=== PATIENT | female | born 1935 | race Caucasian/White ===

== ENCOUNTER 2017-04-25 07:30 | Inpatient (IN) ==
[~2017-04-25 07:30] MED LIST: ACETAMINOPHEN 500 MG TABLET PO ONE; FAMOTIDINE PB 20 MG/50 ML BAG IV ONE; LIDOCAINE 1% (10mg/ml) 2mL INJ PF SDV ID ONE; METOCLOPRAMIDE 10mg/2ml INJECTION IVP ONE; NOZIN NASAL SWAB NAS ONE; ONDANSETRON 4 MG/2 ML INJECTION IVP ONE
[2017-04-25] MEDS ORDERED: EPINEPHrine PF 0.25 MG, BUPIVACAINE 0.25% PF 30 ML, KETOROLAC INJ 60 MG in NS 30 ML OPSITE ONE (08:00)
[2017-04-25 08:43] VITALS: BMI 28.3
[2017-04-25] MEDS: LR 1,000 ML IV SCH ×2 (09:15→12:15)
[2017-04-25] MEDS ORDERED: CEFAZOLIN 1 G INJECTION IVP ONE (10:00)
[2017-04-25] MEDS ORDERED: VANCOMYCIN 1,000 MG INJECTION ONE (10:18)
--- NOTE | 2017-04-25 10:34 | Anesthesia Preoperative Report ---
Anesthesia Preoperative Record - Date and Time Date: 04/25/17 Preoperative Diagnosis: Lt TKA M17.12 Proposed Procedure: Left Total Knee Replacement NPO Since Date: 04/25/17 NPO Since Time: 00:00 Allergies/Adverse Reactions: Allergies Allergy/AdvReac Type Severity Reaction Status Date / Time morphine Allergy Severe HIVES Verified 04/25/17 08:51 lisinopril Allergy Intermediate WEAKNESS Verified 04/25/17 08:51 NSAIDS (Non-Steroidal AdvReac Intermediate Hx of Verified 04/25/17 08:51 Anti-Inflamma bleeding ulcer - Vital Signs Vital Signs: Temperature 97.5 F 04/25/17 08:42 Pulse Rate 56 L 04/25/17 09:45 Respiratory Rate 16 04/25/17 09:45 Blood Pressure 200/82 H 04/25/17 09:45 Pulse Oximetry 97 04/25/17 08:42 Height and Weight: Height 5 ft 7.5 in Weight 83.3 kg Body Mass Index 28.3 - Medications Inpatient Medications: Current Medications Lactated Ringer's (Lactated Ringers) 1,000 mls @ 50 mls/hr IV .Q20H ALEJA Last Admin: 04/25/17 09:15 Dose: 50 mls/hr Sodium Chloride (Iv Flush) 10 - 80 ml IV PRN PRN PRN Reason: Flushing Tranexamic Acid (Cyklokapron) 1,000 mg TOP INTRAOP ONE Stop: 04/25/17 10:42 Home Medications: Home Medications Medication Instructions Recorded Confirmed Type Fluticasone/Salmeterol 250/50 1 puff INH HS #0 08/24/11 04/25/17 History [Advair 250-50 Diskus] Clopidogrel Bisulfate [Clopidogrel] 75 mg PO DAILY #0 tab 05/28/14 04/24/17 History hydroCHLOROthiazide 25 mg PO WB #0 tab 05/28/14 04/25/17 History [Hydrochlorothiazide] Docusate Sodium [Colace] 200 mg PO DAILY #0 cap 12/21/14 04/25/17 History Levothyroxine Sodium 75 mcg PO HS #0 tab 12/21/14 04/25/17 History Multivitamin [Multi-Day Vitamins] 1 tab PO DAILY #0 12/21/14 04/25/17 History [place]-3 Fatty Acids/Fish Oil [Fish 2 cap PO DAILY #0 12/21/14 04/25/17 History Oil Concentrate Softgel] Acetaminophen [Acetaminophen Extra 1,000 mg PO Q6H PRN 03/11/17 04/25/17 History Strength] Glucosamine/D3/Boswellia Magali 1 tab PO DAILY 03/11/17 04/25/17 History [Osteo Bi-Flex Tablet] Sertraline [Zoloft] 50 mg PO DAILY 03/11/17 04/25/17 History Tramadol [Ultram] 100 mg PO DAILY PRN 03/11/17 04/25/17 History dilTIAZem HCl [Cartia Xt] 180 mg PO HS 03/11/17 04/25/17 History Is Patient on Beta Wiliam?: No - Medical History Respiratory: Reports: Asthma DENIES: Sleep Apnea Cardiovascular: Reports: Abnormal EKG (AFib), Arrhythmia (A-Fib), Hypertension Gastrointestional: Reports: Gastroesophageal Reflux Disease (Controlled), Gastrointestinal Bleeding, Ulcer (GAVE disease) Neuro/Musculoskeletal: Reports: HX.MS.OSAR, Back Problems, Depression, Headaches Renal/Endocrine: Reports: Diabetes Mellitus Type 2 (diet controlled), Thyroid Disease (hypo) Other History: Reports: Blood Transfusions (no reactions) - Surgical History HEENT Surgeries: Reports: Eye Surgery (OD cat ext with IOL imp), Tonsillectomy Cardiac Surgeries/Treatments: Reports: Cardiac Catheterization, Other ( Cardioversion x2) GI Surgery/Treatments: Reports: EGD Surgery/Treatment: REPORT: Other (cystocele repair) Musculoskeletal Surgery/Tx: Reports: Knee Arthroscopy (left), Total Knee Replacement (Rt TKA) Reproductive Surgery/Treatment: Reports: Hysterectomy (Vaginal), Laparoscopy ( salpingo-oophorectomy), Oophorectomy, Salpingectomy Anesthesia Reactions: None Hx Family Anesthesia Reaction: No History of Motion Sickness: No - Social History Smoking Status: Never smoker Substance Use Type: does not use Alcohol Intake Frequency: does not drink - Pertinent Findings Laboratory: CBC and BMP 04/25/17 08:53 BMP 04/25/17 08:53 Sodium 142 Potassium 3.8 Chloride 107 Carbon Dioxide 26 BUN 12.0 Creatinine 0.6 L Glucose 185 H Calcium 10.3 H EKG: Sinus Rhythm - Physical Exam Respiratory Exam: Present: lungs clear, bilateral breath sounds equal Cardiovascular Exam: Present: regular rate and rhythm, no murmur - Airway Assessment Mallampati Score: II TMD: 3 Fingerbreadths Neck Extension: fair Overall Assessment: no airway concerns - ASA ASA Score: 2 - Plan Anesthesia: Neuroaxial Regional/Trunk Block: Spinal - Discussion Discussion: Discussed risks/options/alternatives of anesthesia and questions answered. Patient consents. Nursing pain assessment noted. Present for Discussion: family member Attestation Statement: Prior to the delivery of any anesthetic medication, I examined the patient, developed the plan, obtained the patient's consent and discussed the risk and benefits of the procedure with the patient/guardian. - Additional Information Seen by Anesthesia: Yes
[2017-04-25] MEDS ORDERED: SALINE FLUSH 10ml SYRINGE IV PRN (10:41)
[2017-04-25] MEDS ORDERED: TRANEXAMIC ACID 1,000mg/10ml INJECTION TOP ONE (10:41)
[2017-04-25] MEDS ORDERED: VANCOMYCIN 1,000 MG INJECTION IAR ONE (11:36)
[2017-04-25] MEDS ORDERED: PROPOFOL 500 MG/50 ML VIAL IV ONE (11:41)
[2017-04-25] MEDS ORDERED: EPHEDRINE 50mg/ml INJECTION ONE (11:55)
[2017-04-25] MEDS ORDERED: FentaNYL 100 MCG/2 ML INJECTION ONE (12:09)
--- NOTE | 2017-04-25 12:26 | Operative Note ---
- Procedure Preoperative Diagnosis: Left knee primary degenerative joint disease Postoperative Diagnosis: Same as preoperative diagnosis. Surgeon: Addie Flor MD Paradi Tender: Jose Barrera Complications: None. Anesthesia: Spinal with TIVA and LMA Estimated Blood Loss: See Anesthesia Record. Fluids: Please see Anesthesia Record. Description of Procedure: Mrs. Mata and her left knee were identified and marked in the preoperative holding area. She was brought back to the operating suite after a saphenous nerve block was placed in the preoperative holding area. Spinal anesthetic was administered and she was placed supine on the operating table. The left lower extremity was prepped and draped in my normal sterile fashion. Timeout was performed. The IVDesk robot was used during the surgery. 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 A standard anterior midline incision followed by medial parapatellar arthrotomy was performed. Anterior fat pad and meniscus were removed. The patella was resurfaced to a size 29. Tibial and femoral arrays were placed both within the original incision. Checkpoints were then placed both in the femur and the tibia. The bone was then registered with the IVDesk robot. Osteophytes were removed and gaps were captured both 90 and 0 with correction. We manipulated components to achieve a 19 mm gap in extension and 18 mm gap in flexion. The IVDesk robotic arm was then used to assist with the bone cuts. Posterior osteophytes and remaining meniscus were removed. Trial components were placed. We used a 4 femur and a 4 tibia with a 9 mm spacer. She tracked well and was well balanced throughout range of motion. The leg was exsanguinated and the tourniquet inflated to 250 mmHg. The bone was prepared for cementing and components were cemented into place and allowed to cure in extension. The tourniquet was let down and hemostasis obtained with electrocautery. The knee was ranged one more time to ensure good stability, balance and patellar tracking. 1 g of vancomycin powder was then placed into the knee joint. The capsulotomy was then closed with #1 Vicryl. I then left my administrative assistant coordinator to close the subcutaneous tissue with 2-0 Vicryl. Running 4-0 Monocryl will be used in the subcuticular layer. Dermabond will be used on the skin followed by sterile dressing. During the procedure and anesthesia please the patient did convert to a defibrillation which was right controlled. After drapes are removed patient will be taken to recovery room under the care of anesthesia. An EKG will be obtained in the recovery room and cardiac consult we made if necessary.
[2017-04-25] MEDS ORDERED: PROPOFOL 1,000 MG/100 ML VIAL IV ONE (12:31)
[2017-04-25] MEDS ORDERED: ESMOLOL 100 MG/10 ML INJECTION ONE (12:31)
[2017-04-25] MEDS ORDERED: LIDOCAINE 2% (100mg/5mL) PF 5ml vl ONE (12:31)
[2017-04-25] MEDS ORDERED: PHENYLEPHRINE INJ 10 MG/ML VIAL IV ONE (12:31)
--- NOTE | 2017-04-25 13:46 | Anesthesia Procedure Note ---
Peripheral Nerve Blockade - Procedure Physician: Wyatt Flor MD Date: 04/25/17 Surgical Procedure: Left Total Knee Replacement Discussion: Discussed risks/options/alternatives of anesthesia and questions answered. Patient consents. Nursing pain assessment noted. Block Start: 13:25 Block Stop: 13:28 Blocked Employed: Adductor Canal Indication: Post-Operative Pain Approach: Left Side Confirmed Position: Supine Patient: Consent, Risks/Benefits Discussed, Informed, Post Block Act. Discussed IV Sedation: No Sedation: Awake Initial Vital Signs: Temperature 97.5 F 04/25/17 08:42 Temperature Source Oral 04/25/17 08:42 Pulse Rate 65 04/25/17 08:42 Respiratory Rate 15 04/25/17 08:42 Blood Pressure 227/105 H 04/25/17 08:42 Blood Pressure Mean 145 04/25/17 08:42 Blood Pressure Position Sitting 04/25/17 08:42 Pulse Oximetry 97 04/25/17 08:42 Oxygen Delivery Method 04/25/17 08:42 Post Vital Signs: Temperature 97.4 F 04/25/17 12:55 Pulse Rate 93 04/25/17 12:55 Respiratory Rate 14 04/25/17 12:55 Blood Pressure 99/58 04/25/17 12:55 Pulse Oximetry 94 04/25/17 12:55 Initial Pain Pain Score: 5 Prep: Duraprep Ultrasound Used?: Yes - Injectate Ropivacaine (%): 0.5 Ropivacaine (mL): 20 Was Epi 1:200,000 Used?: No Injection: Injection made incrementally with constant monitoring and aspiration every ml
[2017-04-25] MEDS ORDERED: HYDROMORPHONE 2 MG/ML INJECTION IVP PRN (13:53)
--- NOTE | 2017-04-25 14:02 | Cardiology Consult Note ---
<Leslie Rodriguez - Last Filed: 04/26/17 11:36> History of Present Illness Consult date: 04/25/17 Requesting physician: Wyatt Flor Consult reason: atrial fibrillation Chief complaint: left knee replacement History of present illness: Marva is a 81 year old female patient of Dr. Price and Dr. Flor who underwent left total knee replacement today. She has a known history of atrial fibrillation and takes Cardizem for rate control, has had DCCV x2 in the past for rhythm control, but states she often feels her heart rate out of regular rhythm. She had a heart cath in 2015 which was free of significant lesions and her EF was 65% at that time. She currently is not on chronic anticoagulation because she has history of a bleeding ulcer. She is on Plavix 75mg daily as she has a history of TIAs x2. She reports she has diabetes which is controlled with weight loss and diet. She formerly took glipizide but had frequent hypoglycemia and her last A1C is reportedly 6.5. She reports having irritable bowel syndrome and a history of cystocele repair with urinary incontinence. She is examined in the recovery room and denies recent illness, fever chills, sore throat, cough, chest pain, dyspnea, N/V/D or dysuria. Review of Systems - Constitutional Constitutional: Absent: chills, fatigue, fever(s) - EENMT Eyes: Absent: change in vision Balance: Absent: vertigo Mouth/Throat: Absent: sore throat, scratchy throat - Cardiovascular Cardiovascular: Absent: chest pain, palpitations, syncope, dyspnea on exertion Vascular: Absent: pedal edema - Respiratory Respiratory: Absent: cough, dyspnea, dyspnea on exertion - Gastrointestinal Gastrointestinal: Present: as per HPI. Absent: diarrhea, nausea, vomiting - Genitourinary Genitourinary: Present: as per HPI, urinary incontinence. Absent: dysuria - Musculoskeletal Musculoskeletal: Present: arthralgias (left knee) - Integumentary/Breasts Integumentary: Absent: rash - Neurological Neurological: Absent: dizziness - Psychiatric Psychiatric: Present: depression [facility] Patient Stated Medical History Migraine Yes Transient Ischemic Attacks ( Yes: x2, no deficit TIA) Cataracts Yes: OS Cardiac Arrhythmia Yes: A-Fib Hypertension Yes Asthma Yes Sleep Apnea No Diabetes Mellitus Type 2 Yes: diet controlled Gastroesophageal Reflux Yes: Controlled Disease Gastrointestinal Bleeding Yes Ulcer Yes: GAVE disease Hx Incontinence Yes Anemia Yes Other Hematologic Yes: bruises easily from clopidogrel Osteoarthritis Yes Blood Transfusions Yes: no reactions Depression Yes Post Menopausal Yes Clinic Medical History (Last Reviewed 04/08/17 @ 07:06 by Wyatt Flor MD) Overweight (BMI 25.0-29.9) (Acute Medical) Primary osteoarthritis of left knee (Acute Medical) Depression (Acute Medical) Asthma (Acute Medical) A-fib (Acute Medical) GAVE (gastric antral vascular ectasia) (Acute Medical) HTN (hypertension) (Chronic Medical) Stomach ulcer (Chronic Medical) Osteoarthritis (Chronic Medical) Osteoarthritis of knee (Inactive Medical) Surgical History: [id number]; L meniscus arthroscopy; hysterectomy; cystocele repair, cataract removal in left eye, tonsillectomy Family History: Family History (Last Reviewed 04/08/17 @ 07:06 by Wyatt Flor MD) Father [place] Mother Heart failure Sister Diabetes - Social History Smoking status: Never smoker Substance use type: does not use Alcohol intake frequency: does not drink Housing: house Household members: none Current occupational status: retired Current residence: Apartment/Private Home Medications Home Medications Medication Instructions Recorded Confirmed Type Fluticasone/Salmeterol 250/50 1 puff INH HS #0 08/24/11 04/25/17 History [Advair 250-50 Diskus] hydroCHLOROthiazide 25 mg PO WB #0 tab 05/28/14 04/25/17 History [Hydrochlorothiazide] Docusate Sodium [Colace] 200 mg PO DAILY #0 cap 12/21/14 04/25/17 History Levothyroxine Sodium 75 mcg PO HS #0 tab 12/21/14 04/25/17 History Multivitamin [Multi-Day Vitamins] 1 tab PO DAILY #0 12/21/14 04/25/17 History [place]-3 Fatty Acids/Fish Oil [Fish 2 cap PO DAILY #0 12/21/14 04/25/17 History Oil Concentrate Softgel] Acetaminophen [Acetaminophen Extra 1,000 mg PO Q6H PRN 03/11/17 04/25/17 History Strength] Glucosamine/D3/Boswellia Magali 1 tab PO DAILY 03/11/17 04/25/17 History [Osteo Bi-Flex Tablet] Sertraline [Zoloft] 50 mg PO DAILY 03/11/17 04/25/17 History Tramadol [Ultram] 100 mg PO DAILY PRN 03/11/17 04/25/17 History dilTIAZem HCl [Cartia Xt] 180 mg PO HS 03/11/17 04/25/17 History Allergies Allergy/AdvReac Type Severity Reaction Status Date / Time morphine Allergy Severe HIVES Verified 04/25/17 08:51 lisinopril Allergy Intermediate WEAKNESS Verified 04/25/17 08:51 NSAIDS (Non-Steroidal AdvReac Intermediate Hx of Verified 04/25/17 08:51 Anti-Inflamma bleeding ulcer Exam Vital signs: Temperature 97.4 F 04/25/17 12:55 Pulse Rate 80 04/25/17 13:45 Respiratory Rate 20 04/25/17 13:45 Blood Pressure 156/87 H 04/25/17 13:45 Pulse Oximetry 97 04/25/17 13:45 - Constitutional no acute distress, well nourished, cooperative - Routine HEENT Exam Head: Present: normocephalic ENT: Present: mucous membranes moist - Routine Neck Exam Absent: JVD, carotid bruit - Routine Chest/Breast/Axilla Exam Chest wall: Absent: tenderness - Routine Respiratory Exam Present: CTA bilaterally, diminished air movement (bases). Absent: rales, wheezes - Routine Cardiovascular Exam Present: irregular rhythm. Absent: JVD - Routine Abdominal Exam Present: soft, normoactive bowel sounds - Routine Extremities Exam Present: no edema - Routine Skin Exam Present: intact, dry, warm - Routine Neurological Exam Present: alert, oriented X3 - Routine Psychiatric Exam Present: normal affect, normal thought process Results 04/26/17 04:24 04/26/17 04:24 Comprehensive Metabolic Panel 04/25/17 Range/Units 08:53 Sodium 142 (134-144) MEQ/L Potassium 3.8 (3.6-5) MEQ/L Chloride 107 (98-107) MEQ/L Carbon Dioxide 26 (22-30) MEQ/L BUN 12.0 (7-17) MG/DL Creatinine 0.6 L (0.7-1.2) MG/DL Glucose 185 H (65-110) MG/DL Calcium 10.3 H (8.4-10.2) MG/DL Intake and Output 04/24/17 04/25/17 04/25/17 22:59 06:59 14:59 Intake Total 1050 / 1050 Balance 1050 / 1050 Intake: IV 1050 / 1050 Famotidine Pb 20 mg In 50 50 / 50 ml @ 100 mls/hr IV PREOP ONE Rx#:[id number] Lr 1,000 ml @ 50 mls/hr 1000 / 1000 IV .Q20H ALEJA Rx#: [id number] Other: Weight 183 lb 10.321 oz Patient Weight 04/26/17 06:59 Weight 183 lb 10.321 oz Laboratory Results - last 24 hr 04/25/17 04/25/17 08:53 13:05 Turbidity < 20 Sodium 142 Potassium 3.8 Chloride 107 Carbon Dioxide 26 Anion Gap 9 BUN 12.0 Creatinine 0.6 L GFR Calculation 96 BUN/Creatinine Ratio 20 Glucose 185 H Glucometer 166 Calculated Osmolality 278 Calcium 10.3 H Icterus Index < 2 Specimen Hemolysis < 15 Laboratory Results - last 24 hr 04/25/17 04/25/17 04/25/17 08:53 08:53 13:05 Turbidity < 20 Sodium 142 Potassium 3.8 Chloride 107 Carbon Dioxide 26 Anion Gap 9 BUN 12.0 Creatinine 0.6 L GFR Calculation 96 BUN/Creatinine Ratio 20 Glucose 185 H Glucometer 166 Calculated Osmolality 278 Calcium 10.3 H Magnesium 2.1 Icterus Index < 2 TSH 4.94 H Specimen Hemolysis < 15 - Imaging and Cardiology Echo: report reviewed EKG results: image reviewed Imaging & Cardiology Narrative: Date of Exam: 04/25/17 Type of Exam(s): US echo doppler complete DATE OF PROCEDURE April 25, [address] Wyatt Flor This is a two-dimensional echo with spectral Doppler, color-flow and M-mode. It was obtained in a patient with atrial fibrillation. Left atrial dimension is increased. Left ventricle end-diastolic dimension is normal. Left ventricle wall thickness is normal. LV systolic function is normal with ejection fraction of about 55%. Right atrium is normal. Right ventricle is normal. Aortic root dimension is normal. Mitral valve annulus is calcified. Mitral valve leaflets are normal. Aortic valve was not visualized well. However, it appears to be somewhat calcified. Doppler studies indicate no stenosis or insufficiency. Tricuspid valve shows trace of tricuspid regurgitation with normal estimated pulmonary artery systolic pressure of 22. Pulmonary valve shows no pulmonary insufficiency. There is no pericardial effusion. IMPRESSION 1. Normal LV systolic function with ejection fraction of about 55%. 2. Left atrial dilation. 3. Mitral annulus calcification. 4. Aortic sclerosis. 5. Trace of tricuspid regurgitation with normal estimated pulmonary artery systolic pressure of 22. EKG interpretations - EKG EKG shows: atrial fibrillation Assessment and Plan - Assessment and Plan (1) Status post total knee replacement Current visit: Yes Status: Acute per ortho (2) A-fib Current visit: No Status: Chronic Chronic with rate control - Give home Cardizem as ordered - Check TSH and Mag - Obtain echo to evaluate EF, valvular disease, and wall motion abnormalities. - Therapeutic Lovenox 1mg/kg SQ BID, observe for signs of hemorrhage - Start Pradaxa 150mg BID when okay with Ortho (3) HTN (hypertension) Current visit: No Status: Chronic (4) Asthma Current visit: No Status: Chronic (5) History of bleeding ulcers Current visit: Yes Status: Acute at least 2 years ago -will anticoagulate immediately post-operatively with therapeutic Lovenox per ortho -Later may try Pradaxa as it has reversal agent if has a hemorrhage - Assessment and Plan Chronic with rate control - Give home Cardizem as ordered - Check TSH and Mag - Obtain echo to evaluate EF, valvular disease, and wall motion abnormalities. - Lovenox 1mg/kg SQ BID, observe for signs of hemorrhage - Start Pradaxa 150mg BID when okay with Ortho Thank you for allowing us to participate in the care of this patient, we will follow along with you. Hospital Course Summary Disclaimer: The visit summary below is not to be considered part of the above Progress Note. <Hector Lunsford - Last Filed: 04/26/17 14:54> [facility] Patient Stated Medical History Migraine Yes Transient Ischemic Attacks ( Yes: x2, no deficit TIA) Cataracts Yes: OS Cardiac Arrhythmia Yes: A-Fib Hypertension Yes Asthma Yes Sleep Apnea No Diabetes Mellitus Type 2 Yes: diet controlled Gastroesophageal Reflux Yes: Controlled Disease Gastrointestinal Bleeding Yes Ulcer Yes: GAVE disease Hx Incontinence Yes Anemia Yes Other Hematologic Yes: bruises easily from clopidogrel Osteoarthritis Yes Blood Transfusions Yes: no reactions Depression Yes Post Menopausal Yes Clinic Medical History (Last Reviewed 04/08/17 @ 07:06 by Wyatt Flor MD) History of bleeding ulcers (Acute Medical) Overweight (BMI 25.0-29.9) (Acute Medical) Primary osteoarthritis of left knee (Acute Medical) Depression (Acute Medical) Asthma (Chronic Medical) A-fib (Chronic Medical) GAVE (gastric antral vascular ectasia) (Acute Medical) HTN (hypertension) (Chronic Medical) Stomach ulcer (Chronic Medical) Osteoarthritis (Chronic Medical) Osteoarthritis of knee (Inactive Medical) Family History: Family History (Last Reviewed 04/08/17 @ 07:06 by Wyatt Flor MD) Mother Heart failure Exam Vital signs: Temperature 96.5 F L 04/26/17 11:58 Pulse Rate 90 04/26/17 11:58 Respiratory Rate 16 04/26/17 11:58 Blood Pressure 135/57 04/26/17 11:58 Pulse Oximetry 96 04/26/17 11:58 Results 04/26/17 04:24 04/26/17 04:24 CBC 04/26/17 Range/Units 04:24 Hgb 13.3 (12-16) GM/DL Hct 41.1 (36-46) % Comprehensive Metabolic Panel 04/26/17 Range/Units 04:24 Sodium 142 (134-144) MEQ/L Potassium 4.0 (3.6-5) MEQ/L Chloride 107 (98-107) MEQ/L Carbon Dioxide 28 (22-30) MEQ/L BUN 15.0 (7-17) MG/DL Creatinine 0.8 D (0.7-1.2) MG/DL Glucose 156 H (65-110) MG/DL Calcium 9.3 D (8.4-10.2) MG/DL Intake and Output 04/25/17 04/26/17 04/26/17 22:59 06:59 14:59 Intake Total 348 / 348 1252.000 / 1252.000 783.667 / 783.667 Output Total 575 / 575 650 / 650 Balance 348 / 348 677.000 / 677.000 133.667 / 133.667 Intake: IV 348 / 348 852.000 / 852.000 298.667 / 298.667 Cefazolin 2 g In Ns 100 100 / 100 100 / 100 ml @ 200 mls/hr IV Q8H ALEJA Rx#:[id number] Ns 1,000 ml @ 80 mls/hr 248 / 248 752.000 / 752.000 298.667 / 298.667 IV .[id number] ALEJA Rx#: [id number] Oral 400 / 400 485 / 485 Output: Urine 575 / 575 650 / 650 Other: Urine Appearance Clear Clear Urine Color Dark Yellow Yellow Urine Odor Normal # Voids 1 1 Assessment and Plan - Attestation Attestation Narrative: 04/26/17 14:54 Recommendation After examining the patient I agree with the above assessment. I am involved in the formulation of the patient's plan of care. - Assessment and Plan (1) HTN (hypertension) Current visit: No Status: Chronic (2) A-fib Current visit: No Status: Chronic (3) Asthma Current visit: No Status: Chronic (4) Status post total knee replacement Current visit: Yes Status: Acute (5) History of bleeding ulcers Current visit: Yes Status: Acute Hospital Course Summary Disclaimer: The visit summary below is not to be considered part of the above Progress Note.
[2017-04-25] MEDS ORDERED: DiphenhydrAMINE 50 MG/ML INJECTION IVP PRN (14:42)
[2017-04-25] MEDS ORDERED: DiphenhydrAMINE 25 MG CAPSULE PO PRN (14:42)
[2017-04-25] MEDS ORDERED: TRAMADOL 50 MG TABLET PO PRN (14:42)
[2017-04-25] MEDS ORDERED: ONDANSETRON 4 MG/2 ML INJECTION IVP PRN (14:42)
[2017-04-25] MEDS ORDERED: LORazepam 1 MG TABLET PO PRN (14:42)
[2017-04-25] MEDS ORDERED: NOZIN NASAL SWAB NAS ONE (14:42)
[2017-04-25] MEDS ORDERED: INSULIN ASPART 100unit/ml INJECTION SQ PRN (14:42)
--- NOTE | 2017-04-25 14:48 | Anesthesia Postoperative Note ---
- Date and Time Date: 04/25/17 Time: 14:47 - Status Patient Participated in Evaluation: Patient Participated in Person Vital Signs: Temperature 97.4 F 04/25/17 12:55 Pulse Rate 71 04/25/17 14:35 Respiratory Rate 20 04/25/17 14:35 Blood Pressure 142/103 H 04/25/17 14:35 Pulse Oximetry 97 04/25/17 14:35 Respiratory Function: Airway Patent, Regular Respirations Cardiovascular Function: Regular Pulse EKG: A-fib Mental Status: Alert and Oriented Pain Intensity: 4 Hydration: IV Infusing Complications During Recover: None Apparent Post Anesthesia Care Notes: Cardiology consulted - Follow-Up Instructions Instructions: Per Surgeon
[2017-04-25] MEDS ORDERED: FALL RISK - PHARMACY CONSULT XX ONE (15:04)
[2017-04-25] MEDS: ACETAMINOPHEN 325 MG TABLET PO SCH ×3 (15:05→21:43)
[2017-04-25] MEDS: NS 1,000 ML IV SCH (15:05)
[2017-04-25] MEDS: NOZIN NASAL SWAB NAS SCH ×2 (15:07→21:46)
--- NOTE | 2017-04-25 15:38 | XRay Report ---
Indication: postoperative image PROCEDURE: XR knee LT 2V: Encounter: Initial Comparison: April 03, 2017 Findings: Postoperative changes of left total knee replacement are seen. There is expected postoperative subcutaneous gas. No evidence of hardware failure or acute fracture. No retained radiopaque surgical instruments or sponges. Overlying material causing artifact. Impression: New left total knee prosthesis without evidence of immediate complication. .
[2017-04-25] MEDS: CEFAZOLIN 2 G in NS 100 ML IV SCH (18:11)
[2017-04-25] MEDS ORDERED: LEVOTHYROXINE 75 MCG TABLET PO SCH (21:00)
[2017-04-25] MEDS ORDERED: SENNOSIDES 8.6 MG TABLET PO SCH (21:00)
[2017-04-25] MEDS: DOCUSATE SODIUM 100 MG CAPSULE PO SCH (21:42)
[2017-04-25] MEDS: ENOXAPARIN 80 MG/0.8 ML INJECTION SQ SCH (21:44)
[2017-04-25] MEDS: ASPIRIN *EC* 81 MG TABLET PO SCH (21:44)
[2017-04-26] MEDS: CEFAZOLIN 2 G in NS 100 ML IV SCH (03:05)
[2017-04-26] MEDS: NS 1,000 ML IV SCH (04:36)
[2017-04-26] MEDS: NOZIN NASAL SWAB NAS SCH ×2 (06:52→14:44)
[2017-04-26] MEDS ORDERED: METOPROLOL 5mg/5ml INJECTION IVP ONE (08:53)
[2017-04-26] MEDS ORDERED: CLOPIDOGREL 75 MG TABLET PO SCH (09:00)
[2017-04-26] MEDS ORDERED: POLYETHYL GLYCOL 3350 17gm PACKET PO SCH (09:00)
[2017-04-26] MEDS ORDERED: SERTRALINE 50 MG TABLET PO SCH (09:00)
[2017-04-26] MEDS: ASPIRIN *EC* 81 MG TABLET PO SCH (09:01)
[2017-04-26] MEDS: ACETAMINOPHEN 325 MG TABLET PO SCH ×2 (09:01→14:12)
[2017-04-26] MEDS: DOCUSATE SODIUM 100 MG CAPSULE PO SCH (09:02)
[2017-04-26] MEDS: ENOXAPARIN 80 MG/0.8 ML INJECTION SQ SCH (09:02)
--- NOTE | 2017-04-26 09:37 | Echocardiogram ---
DATE OF PROCEDURE April 25, [address] Wyatt Flor This is a two-dimensional echo with spectral Doppler, color-flow and M-mode. It was obtained in a patient with atrial fibrillation. Left atrial dimension is increased. Left ventricle end-diastolic dimension is normal. Left ventricle wall thickness is normal. LV systolic function is normal with ejection fraction of about 55%. Right atrium is normal. Right ventricle is normal. Aortic root dimension is normal. Mitral valve annulus is calcified. Mitral valve leaflets are normal. Aortic valve was not visualized well. However, it appears to be somewhat calcified. Doppler studies indicate no stenosis or insufficiency. Tricuspid valve shows trace of tricuspid regurgitation with normal estimated pulmonary artery systolic pressure of 22. Pulmonary valve shows no pulmonary insufficiency. There is no pericardial effusion. IMPRESSION 1. Normal LV systolic function with ejection fraction of about 55%. 2. Left atrial dilation. 3. Mitral annulus calcification. 4. Aortic sclerosis. 5. Trace of tricuspid regurgitation with normal estimated pulmonary artery systolic pressure of 22. MTDD
[2017-04-26 11:59] VITALS: BP 135/57; PULSE 90; RESP 16; TEMP 96.5; O2SAT 96
[2017-04-26] MEDS ORDERED: SENNOSIDES 8.6 MG TABLET PO PRN (12:48)
--- NOTE | 2017-04-26 13:49 | Orthopedic Progress Note ---
Date: Subjective/Severity of Illness: Mrs. Mata is ready for discharge. I've spoken with Dr. Flor who recommends 4 days of Lovenox 80mg SQ BID, then switching to Pradaxa. I've spoken with Ernestina Boogie with cardiology who recommends Pradaxa 150mg PO BID. I've written scripts for both. Mrs. Mata pain is controlled. She is adequately ambulatory. Orthopedic Objective PO Vital signs: Temperature 96.5 F L 04/26/17 11:58 Pulse Rate 90 04/26/17 11:58 Respiratory Rate 16 04/26/17 11:58 Blood Pressure 135/57 04/26/17 11:58 Pulse Oximetry 96 04/26/17 11:58 Height and Weight: Height 5 ft 7.5 in Weight 183 lb 10.321 oz Body Mass Index 28.3 - Constitutional General Appearance: Present: alert, orientated x3 - Respiratory Exam Present: non-labored - Cardiovascular Exam Capillary Refill: < 2-3 Seconds - Abdominal Exam Absent: distended - Extremities Exam Extremities: Present: pulses intact - Knee Exam Knee Exam: Absent: painful ROM - Surgical Site Incision: bloody drainage present (distal end, it only affects one side) - Integumentary Exam Present: pink, warm, dry - Lymphatic Lymphatic: Absent: lymphedema - Neurological Exam Present: intact to light touch - Psychiatric Exam Present: normal affect - Labs Result Diagrams: 04/26/17 04:24 04/26/17 04:24 Abnormal lab results 04/25/17 04/26/17 Range/Units 08:53 04:24 Glucose 156 H (65-110) MG/DL TSH 4.94 H (0.47-4.68) MIU/L H & H 04/26/17 Range/Units 04:24 Hgb 13.3 (12-16) GM/DL Hct 41.1 (36-46) % Orthopedic Assessment and Plan - Anticoagulation Therapy Anticoagulation: other Hospital Course Summary Disclaimer: The visit summary below is not to be considered part of the above Progress Note.
--- NOTE | 2017-04-26 13:55 | Discharge Summary ---
Orthopedic Discharge Info Date of admission: 04/25/17 08:17 Primary care physician: Jalil Price MD Attending Physician: Wyatt Flor MD Consults: 04/25/17 08:27 Consult to Anesthesiology [CONS] Routine Consulting Provider: NOLAN Mathew Reason For Exam: Preoperative Assessment 04/25/17 14:42 Case Management Consult [CONS] Routine Reason For Exam: Discharge Planning DME-Walker [CONS] Routine Height: 5 ft 7.5 in Weight: 183 lb 10.321 oz Comment: change dressing in 2 weeks Physician Consult [CONS] Routine Consulting Provider: Hector Lunsford Reason For Exam: A Fib intra op. Ordering Provider has Notified Spot Welder Line: No Total Joint Outpatient Therapy [CONS] Routine Comment: change dressing in 2 weeks - Procedures Procedures: Procedures Total knee replacement (09/18/10) - Laboratory Result Diagrams: 04/26/17 04:24 04/26/17 04:24 Laboratory: Abnormal lab results 04/25/17 04/26/17 Range/Units 08:53 04:24 Glucose 156 H (65-110) MG/DL TSH 4.94 H (0.47-4.68) MIU/L H & H 04/26/17 Range/Units 04:24 Hgb 13.3 (12-16) GM/DL Hct 41.1 (36-46) % Orthopedic Discharge HPI - HPI Comments This patient was admitted for elective surgical tx of end stage degenerative joint disease that failed to respond to conservative treatment. Further details of this is found in the admission H&P. Orthopedic Hospital Course Hospital course: 04/26/17 13:52 After appropriate preoperative clearance and signing of operative consent, the patient was given IV antibiotics, according to orthopedic protocol. The patient was taken to the operating room and underwent elective joint arthroplasty. Following surgery, antibiotics were discontinued less than 24 hours according to joint protocol. Appropriate anticoagulants were initiated and SCDs added for DVT prevention. The dressing was clean, dry, and intact. Pain control was obtained via multimodal approach. Bowel motivation addressed with scheduled and PRN medications. Early mobilization was initiated through PT services. Discharge arrangements made by a collaborative effort between the patient and Case Management. Mrs. Mata developed A-fib intra operatively. Cardiology was consulted post op. Please see their notes for specifics. Anitcoagulation plan post op was made in consultation with cardiology and orthopaedics. It was decided that she should have 4 days of Lovenox 80mg SQ BID for 4 days, then switch to Pradaxa. Her Plavix was discontinued. Follow-up is scheduled in 2-3 weeks. Discharge instructions given by orthopedic providers and nursing staff at discharge. Discharge condition was good. Ongoing care required?: No - Postoperative Anemia patient received IVF, labs monitored daily, no intervention required, HGB drop- acceptable Discharge Plan - Med Rec/Dispo Referrals/Follow Up: Wyatt Flor MD [Physician] - 05/15/17 2:15 pm Marvin Instructions: [facility] [place]o Postop Instructions Additional Instructions: [facility] ON 04/29/2017 AT 3:15PM FOR PHYSICAL THERAPY EVAL. PLEASE COMPLETE THE PAPERWORK IN THE [facility] [place] [facility] PRIOR TO THE APPOINTMENT. PHONE [phone] Prescriptions: New Dabigatran [Pradaxa] 1 cap PO BID #60 cap Enoxaparin Sodium [Lovenox] 80 mg SQ BID #8 syringe PEG 3350 17gm PACKET [Miralax] 17 gm PO DAILY packet Tramadol [Ultram] 50 - 100 mg PO Q6H PRN #60 tab PRN Reason: Pain Acetaminophen [Tylenol] 650 mg PO QID tablet Continue hydroCHLOROthiazide [Hydrochlorothiazide] 25 mg PO WB #0 tab Levothyroxine Sodium 75 mcg PO HS #0 tab Multivitamin [Multi-Day Vitamins] 1 tab PO DAILY #0 Glucosamine/D3/Boswellia Magali [Osteo Bi-Flex Tablet] 1 tab PO DAILY dilTIAZem HCl [Cartia Xt] 180 mg PO HS Acetaminophen [Acetaminophen Extra Strength] 1,000 mg PO Q6H PRN PRN Reason: Pain Fluticasone/Salmeterol 250/50 [Advair 250-50 Diskus] 1 puff INH HS #0 Curlew-3 Fatty Acids/Fish Oil [Fish Oil Concentrate Softgel] 2 cap PO DAILY #0 Docusate Sodium [Colace] 200 mg PO DAILY #0 cap Tramadol [Ultram] 100 mg PO DAILY PRN PRN Reason: Pain Sertraline [Zoloft] 50 mg PO DAILY Discontinued Clopidogrel Bisulfate [Clopidogrel] 75 mg PO DAILY #0 tab - Disposition 01 Discharged Home, Self-Care - Dismissal Complete Discharge Instructions are:: Complete
[2017-04-27] MEDS ORDERED: BISACODYL 10 MG SUPPOSITORY RECTALLY SCH (20:00)
== END 2017-04-26 15:35 | disposition home or self-care (01) | DRG 470 ==
LOC: SRG 08:17
PROVIDERS: ADMIT Orthopaedic Surgery; ATTEND Orthopaedic Surgery